=== PATIENT | female | born 1990 | race Hispanic/Latino ===

== ENCOUNTER 2018-08-10 16:08 | Inpatient (IN) | payer MEDICAID | END 2018-08-16 12:15 | disposition home or self-care (01) | DRG 744 | LOC: C.ER 16:08 → C.7D 21:22 | PROVIDERS: ADMIT Psychiatry & Neurology Psychiatry | PROC: HZ2ZZZZ Detoxification Services for Substance Abuse Treatment (ICD-10-PCS; principal; 2018-08-10) | PROC: HZ59ZZZ Individual Psychotherapy for Substance Abuse Treatment, Supportive (ICD-10-PCS; 2018-08-10) | PROC: GZ3ZZZZ Medication Management (ICD-10-PCS; 2018-08-10) | PROC: HZ46ZZZ Group Counseling for Substance Abuse Treatment, Psychoeducation (ICD-10-PCS; 2018-08-10) ==